=== PATIENT | male | born 1950 | race Asian ===

== ENCOUNTER 2017-05-05 07:38 | Outpatient (CLI) | payer OTHER ==
[2017-05-05 09:09] LABS: BASOPHILS # (AUTO) 0.1 K/uL (0.0-0.2); BASOPHILS % (AUTO) 0.8 % (0.0-2.0); EOSINOPHILS # (AUTO) 0.2 K/uL (0.0-0.4); EOSINOPHILS % (AUTO) 1.9 % (0.0-4.0); HEMATOCRIT 52.3 % (36-54); HEMOGLOBIN 16.8 g/dL (14.0-18.0); LYMPHOCYTES # (AUTO) 2.1 K/uL (1.0-5.5); LYMPHOCYTES % (AUTO) 25.4 % (20.5-51.5); MEAN CORPUSCULAR HEMOGLOBIN 28 pg (27-31); MEAN CORPUSCULAR HGB CONC 32 % (32-36); MEAN CORPUSCULAR VOLUME 88 fL (79.0-98.0); MONOCYTES # (AUTO) 0.6 K/uL (0.0-1.0); MONOCYTES % (AUTO) 7.5 % (1.7-9.3); NEUTROPHILS # (AUTO) 5.1 K/uL (1.8-7.7); NEUTROPHILS % (AUTO) 64.4 % (40.0-70.0); PLATELET COUNT (AUTO) 242 K/uL (130-430); RED BLOOD CELL COUNT(AUTO) 5.92 MIL/uL (4.2-6.2); RED CELL DISTRIBUTION WIDTH 12.5 % (9.0-15.0); WHITE BLOOD COUNT (AUTO) 8.1 K/uL (4.8-10.8)
[2017-05-05 09:13] LABS: BILIRUBIN,URINE NEGATIVE (NEGATIVE); CLARITY/URINE CLEAR (CLEAR); COLOR,URINE YELLOW (YELLOW); GLUCOSE,URINE 3+ (NEGATIVE); KETONES,URINE NEGATIVE (NEGATIVE); LEUKOCYTE ESTERASE ,URINE NEGATIVE (NEGATIVE); NITRITE, URINE NEGATIVE (NEGATIVE); PH,URINE 5.5 (5.0-8.0); PROTEIN URINE 3+ (NEGATIVE); UROBILINOGEN,URINE 0.2 (0.2-1.0)
[2017-05-05 09:15] LABS: BLOOD, URINE TRACE (NEGATIVE)
[2017-05-05 09:20] LABS: BACTERIA,URINE FEW /HPF (None Seen); MUCUS,URINE 1+ /LPF (None Seen); RBC,URINE 0-3 /HPF (0-3); WBC,URINE NONE SEEN /HPF (0-3)
[2017-05-05 09:53] LABS: CREATININE 1.28 mg/dL (0.55-1.30); POTASSIUM 4.6 mmol/L (3.5-5.1); THYROID STIMULATING HORMONE 1.15 uIu/mL (0.34-4.82); TOTAL BILIRUBIN 0.6 mg/dL (0.0-1.0); URIC ACID 7.8 mg/dL (2.4-7.0)
[2017-05-06 11:49] LABS: HEMOGLOBIN A1C 10.1 % (4.8-5.6)
== END 2017-05-05 19:57 | disposition home or self-care (01) ==
LOC: SLB 07:38
PROVIDERS: ATTEND Internal Medicine
DX: E11.9 Type 2 diabetes mellitus without complications (principal); E78.5 Hyperlipidemia, unspecified; I25.10 Atherosclerotic heart disease of native coronary artery without angina pectoris
CPT/HCPCS: 36415; 80053; 80061; 81000-TC; 82043; 82306; 82570; 82607; 83036; 84443-TC; 84550-TC; 85025

== ENCOUNTER 2017-08-25 15:05 | Outpatient (CLI) | payer OTHER ==
[2017-08-25 15:53] LABS: BILIRUBIN,URINE NEGATIVE (NEGATIVE); BLOOD, URINE 1+ (NEGATIVE); CLARITY/URINE CLEAR (CLEAR); COLOR,URINE YELLOW (YELLOW); GLUCOSE,URINE 3+ (NEGATIVE); KETONES,URINE NEGATIVE (NEGATIVE); LEUKOCYTE ESTERASE ,URINE NEGATIVE (NEGATIVE); NITRITE, URINE NEGATIVE (NEGATIVE); PROTEIN URINE 2+ (NEGATIVE); UROBILINOGEN,URINE 0.2 (0.2-1.0)
[2017-08-25 16:00] LABS: BACTERIA,URINE FEW /HPF (None Seen); RBC,URINE 0-3 /HPF (0-3); WBC,URINE 0-3 /HPF (0-3)
[2017-08-25 16:01] LABS: YEAST,URINE Few /HPF (None Seen)
[2017-08-25 16:04] LABS: CALCIUM 9.5 mg/dL (8.4-11.0); CREATININE 1.34 mg/dL (0.55-1.30); POTASSIUM 4.2 mmol/L (3.5-5.1)
[2017-08-26 15:59] LABS: MICROALBUMIN/CREAT RATIO, UR 2531.3 MG/G CRE (0.0-30.0)
[2017-08-26 16:00] LABS: CREATININE, URINE 46.4 mg/dL; MICROALBUMIN URINE RANDOM 1174.5 ug/ml (NOT ESTABLISHED)
== END 2017-08-25 21:16 | disposition home or self-care (01) ==
LOC: SLB 15:05
PROVIDERS: ATTEND Internal Medicine
DX: E11.21 Type 2 diabetes mellitus with diabetic nephropathy (principal); E78.5 Hyperlipidemia, unspecified
CPT/HCPCS: 36415; 80048; 81000-TC; 82043; 82570

== ENCOUNTER 2017-09-11 07:48 | Outpatient (CLI) | payer OTHER ==
[2017-09-11 08:49] LABS: BASOPHILS # (AUTO) 0.1 K/uL (0.0-0.2); BASOPHILS % (AUTO) 0.7 % (0.0-2.0); EOSINOPHILS # (AUTO) 0.2 K/uL (0.0-0.4); EOSINOPHILS % (AUTO) 1.9 % (0.0-4.0); HEMATOCRIT 46.6 % (36-54); LYMPHOCYTES # (AUTO) 1.8 K/uL (1.0-5.5); LYMPHOCYTES % (AUTO) 21.7 % (20.5-51.5); MEAN CORPUSCULAR HEMOGLOBIN 31 pg (27-31); MEAN CORPUSCULAR HGB CONC 34 % (32-36); MEAN CORPUSCULAR VOLUME 89 fL (79.0-98.0); MONOCYTES # (AUTO) 0.7 K/uL (0.0-1.0); MONOCYTES % (AUTO) 9.1 % (1.7-9.3); NEUTROPHILS # (AUTO) 5.3 K/uL (1.8-7.7); NEUTROPHILS % (AUTO) 66.6 % (40.0-70.0); PLATELET COUNT (AUTO) 246 K/uL (130-430); RED BLOOD CELL COUNT(AUTO) 5.21 MIL/uL (4.2-6.2); RED CELL DISTRIBUTION WIDTH 12.4 % (9.0-15.0); WHITE BLOOD COUNT (AUTO) 8.1 K/uL (4.8-10.8)
[2017-09-11 09:05] LABS: ALBUMIN 3.8 g/dL (3.4-4.8); CALCIUM 9.3 mg/dL (8.4-11.0); CREATININE 1.54 mg/dL (0.55-1.30); POTASSIUM 3.9 mmol/L (3.5-5.1); THYROID STIMULATING HORMONE 1.63 uIu/mL (0.34-4.82); TOTAL BILIRUBIN 0.6 mg/dL (0.0-1.0)
== END 2017-09-11 20:36 | disposition home or self-care (01) ==
LOC: SLB 07:48
PROVIDERS: ATTEND Internal Medicine
DX: I10 Essential (primary) hypertension (principal); E78.5 Hyperlipidemia, unspecified; N65.0 Deformity of reconstructed breast; E11.9 Type 2 diabetes mellitus without complications
CPT/HCPCS: 36415; 80053; 80061; 82306; 84443-TC; 85025

== ENCOUNTER 2017-10-06 10:03 | Outpatient (CLI) | payer OTHER | END 2017-10-06 20:31 | disposition home or self-care (01) | LOC: SMI 10:03 | PROVIDERS: ATTEND Psychiatry & Neurology Neurology | DX: I63.9 Cerebral infarction, unspecified (principal); I51.7 Cardiomegaly; I25.10 Atherosclerotic heart disease of native coronary artery without angina pectoris; J90 Pleural effusion, not elsewhere classified | CPT/HCPCS: 70551 ==

== ENCOUNTER 2017-12-25 09:19 | Outpatient (CLI) | payer OTHER ==
[2017-12-25 10:44] LABS: BASOPHILS # (AUTO) 0.1 K/uL (0.0-0.2); BASOPHILS % (AUTO) 1.3 % (0.0-2.0); EOSINOPHILS # (AUTO) 0.2 K/uL (0.0-0.4); EOSINOPHILS % (AUTO) 3.3 % (0.0-4.0); HEMATOCRIT 51.9 % (36-54); HEMOGLOBIN 17.2 g/dL (14.0-18.0); LYMPHOCYTES # (AUTO) 1.9 K/uL (1.0-5.5); MEAN CORPUSCULAR HEMOGLOBIN 29 pg (27-31); MEAN CORPUSCULAR HGB CONC 33 % (32-36); MEAN CORPUSCULAR VOLUME 87 fL (79.0-98.0); MONOCYTES # (AUTO) 0.6 K/uL (0.0-1.0); MONOCYTES % (AUTO) 8.3 % (1.7-9.3); NEUTROPHILS # (AUTO) 3.9 K/uL (1.8-7.7); NEUTROPHILS % (AUTO) 58.1 % (40.0-70.0); PLATELET COUNT (AUTO) 301 K/uL (130-430); RED BLOOD CELL COUNT(AUTO) 5.93 MIL/uL (4.2-6.2); RED CELL DISTRIBUTION WIDTH 12.5 % (9.0-15.0); WHITE BLOOD COUNT (AUTO) 6.7 K/uL (4.8-10.8)
[2017-12-25 10:59] LABS: BILIRUBIN,URINE NEGATIVE (NEGATIVE); BLOOD, URINE 1+ (NEGATIVE); CLARITY/URINE CLEAR (CLEAR); COLOR,URINE YELLOW (YELLOW); GLUCOSE,URINE 1+ (NEGATIVE); KETONES,URINE NEGATIVE (NEGATIVE); LEUKOCYTE ESTERASE ,URINE NEGATIVE (NEGATIVE); NITRITE, URINE NEGATIVE (NEGATIVE); PH,URINE 5.5 (5.0-8.0); PROTEIN URINE 3+ (NEGATIVE); UROBILINOGEN,URINE 0.2 (0.2-1.0)
[2017-12-25 11:36] LABS: CREATININE 1.69 mg/dL (0.55-1.30); POTASSIUM 3.9 mmol/L (3.5-5.1)
[2017-12-25 11:50] LABS: ALBUMIN 4.2 g/dL (3.4-4.8); THYROID STIMULATING HORMONE 1.42 uIu/mL (0.34-4.82); TOTAL BILIRUBIN 0.5 mg/dL (0.0-1.0)
[2017-12-25 12:32] LABS: BACTERIA,URINE None Seen /HPF (None Seen); WBC,URINE 0-3 /HPF (0-3)
[2017-12-26 08:06] LABS: PROSTATE SPECIFIC AG 1.4 ng/mL (0.0-4.0)
[2017-12-27 18:46] LABS: HEMOGLOBIN A1C 9.5 % (4.8-5.6)
== END 2017-12-25 20:40 | disposition home or self-care (01) ==
LOC: SLB 09:19
PROVIDERS: ATTEND Internal Medicine
DX: Z12.5 Encounter for screening for malignant neoplasm of prostate (principal)
CPT/HCPCS: 36415; 80053; 80061; 81000; 82306; 82607; 83036; 84443; 85025; G0103

== ENCOUNTER 2018-03-07 07:08 | Outpatient (CLI) | payer OTHER ==
[2018-03-07 07:46] LABS: BILIRUBIN,URINE NEGATIVE (NEGATIVE); BLOOD, URINE 1+ (NEGATIVE); CLARITY/URINE SL HAZY (CLEAR); COLOR,URINE YELLOW (YELLOW); GLUCOSE,URINE TRACE (NEGATIVE); KETONES,URINE NEGATIVE (NEGATIVE); LEUKOCYTE ESTERASE ,URINE NEGATIVE (NEGATIVE); NITRITE, URINE NEGATIVE (NEGATIVE); PROTEIN URINE 3+ (NEGATIVE); UROBILINOGEN,URINE 0.2 (0.2-1.0)
[2018-03-07 07:47] LABS: BASOPHILS % (AUTO) 0.5 % (0.0-2.0); EOSINOPHILS # (AUTO) 0.3 K/uL (0.0-0.4); EOSINOPHILS % (AUTO) 2.7 % (0.0-4.0); HEMATOCRIT 47.7 % (36-54); HEMOGLOBIN 15.8 g/dL (14.0-18.0); LYMPHOCYTES % (AUTO) 19.9 % (20.5-51.5); MEAN CORPUSCULAR HEMOGLOBIN 28 pg (27-31); MEAN CORPUSCULAR HGB CONC 33 % (32-36); MEAN CORPUSCULAR VOLUME 85 fL (79.0-98.0); MONOCYTES # (AUTO) 0.8 K/uL (0.0-1.0); MONOCYTES % (AUTO) 7.9 % (1.7-9.3); NEUTROPHILS # (AUTO) 6.8 K/uL (1.8-7.7); PLATELET COUNT (AUTO) 341 K/uL (130-430); RED CELL DISTRIBUTION WIDTH 13.1 % (9.0-15.0); WHITE BLOOD COUNT (AUTO) 9.9 K/uL (4.8-10.8)
[2018-03-07 07:55] LABS: CREATININE 1.51 mg/dL (0.55-1.30); POTASSIUM 4.3 mmol/L (3.5-5.1)
[2018-03-07 07:59] LABS: BACTERIA,URINE RARE /HPF (None Seen); MUCUS,URINE 1+ /LPF (None Seen); WBC,URINE 0-3 /HPF (0-3)
[2018-03-07 08:10] LABS: ALBUMIN 3.7 g/dL (3.4-4.8); THYROID STIMULATING HORMONE 1.51 uIu/mL (0.34-4.82); TOTAL BILIRUBIN 0.6 mg/dL (0.0-1.0)
== END 2018-03-07 21:11 | disposition home or self-care (01) ==
LOC: SLB 07:08
PROVIDERS: ATTEND Internal Medicine
DX: I25.10 Atherosclerotic heart disease of native coronary artery without angina pectoris (principal); I10 Essential (primary) hypertension; E78.5 Hyperlipidemia, unspecified; E11.65 Type 2 diabetes mellitus with hyperglycemia; E56.9 Vitamin deficiency, unspecified
CPT/HCPCS: 36415; 80053; 80061; 81000-TC; 82306; 82607; 83036; 84443-TC; 85025

== ENCOUNTER 2018-03-13 07:57 | Outpatient (CLI) | payer OTHER | END 2018-03-13 21:21 | disposition home or self-care (01) | LOC: SUS 07:57 | PROVIDERS: ATTEND Internal Medicine | DX: N28.9 Disorder of kidney and ureter, unspecified (principal); R93.2 Abnormal findings on diagnostic imaging of liver and biliary tract | CPT/HCPCS: 76700-TC ==

== ENCOUNTER 2018-07-06 08:35 | Outpatient (CLI) | payer OTHER ==
[2018-07-06 09:04] LABS: BASOPHILS # (AUTO) 0.1 K/uL (0.0-0.2); EOSINOPHILS # (AUTO) 0.2 K/uL (0.0-0.4); EOSINOPHILS % (AUTO) 2.6 % (0.0-4.0); HEMATOCRIT 46.3 % (36-54); HEMOGLOBIN 15.3 g/dL (14.0-18.0); LYMPHOCYTES # (AUTO) 2.3 K/uL (1.0-5.5); LYMPHOCYTES % (AUTO) 30.5 % (20.5-51.5); MEAN CORPUSCULAR HEMOGLOBIN 30 pg (27-31); MEAN CORPUSCULAR HGB CONC 33 % (32-36); MEAN CORPUSCULAR VOLUME 89 fL (79.0-98.0); MONOCYTES # (AUTO) 0.7 K/uL (0.0-1.0); MONOCYTES % (AUTO) 9.7 % (1.7-9.3); NEUTROPHILS # (AUTO) 4.3 K/uL (1.8-7.7); NEUTROPHILS % (AUTO) 56.2 % (40.0-70.0); PLATELET COUNT (AUTO) 234 K/uL (130-430); RED CELL DISTRIBUTION WIDTH 14.2 % (9.0-15.0); WHITE BLOOD COUNT (AUTO) 7.6 K/uL (4.8-10.8)
[2018-07-06 09:26] LABS: TOTAL IRON BIND. CAPACITY 314 ug/dL (250-450)
[2018-07-06 09:42] LABS: ALBUMIN 3.5 g/dL (3.4-4.8); CALCIUM 9.6 mg/dL (8.4-11.0); CREATININE 1.38 mg/dL (0.55-1.30); POTASSIUM 4.4 mmol/L (3.5-5.1); TOTAL BILIRUBIN 0.5 mg/dL (0.0-1.0)
[2018-07-07 10:47] LABS: HEMOGLOBIN A1C 8.8 % (4.8-5.6)
== END 2018-07-06 21:09 | disposition home or self-care (01) ==
LOC: SLB 08:35
PROVIDERS: ATTEND Internal Medicine
DX: E11.22 Type 2 diabetes mellitus with diabetic chronic kidney disease (principal); E11.21 Type 2 diabetes mellitus with diabetic nephropathy; E11.65 Type 2 diabetes mellitus with hyperglycemia; I12.9 Hypertensive chronic kidney disease with stage 1 through stage 4 chronic kidney disease, or unspecified chronic kidney disease; N18.3 Chronic kidney disease, stage 3 (moderate); E66.3 Overweight; E78.2 Mixed hyperlipidemia
CPT/HCPCS: 36415; 80053; 80061; 82306; 83036; 83540-TC; 83550-TC; 85025

== ENCOUNTER 2018-11-10 07:24 | Outpatient (CLI) | payer OTHER ==
[2018-11-10 08:35] LABS: BASOPHILS # (AUTO) 0.1 K/uL (0.0-0.2); BASOPHILS % (AUTO) 1.2 % (0.0-2.0); EOSINOPHILS # (AUTO) 0.1 K/uL (0.0-0.4); EOSINOPHILS % (AUTO) 1.7 % (0.0-4.0); HEMATOCRIT 48.5 % (36-54); HEMOGLOBIN 16.3 g/dL (14.0-18.0); LYMPHOCYTES # (AUTO) 2.3 K/uL (1.0-5.5); LYMPHOCYTES % (AUTO) 30.7 % (20.5-51.5); MEAN CORPUSCULAR HEMOGLOBIN 30 pg (27-31); MEAN CORPUSCULAR HGB CONC 34 % (32-36); MEAN CORPUSCULAR VOLUME 89 fL (79.0-98.0); MONOCYTES # (AUTO) 0.7 K/uL (0.0-1.0); MONOCYTES % (AUTO) 9.2 % (1.7-9.3); NEUTROPHILS # (AUTO) 4.2 K/uL (1.8-7.7); NEUTROPHILS % (AUTO) 57.2 % (40.0-70.0); PLATELET COUNT (AUTO) 247 K/uL (130-430); RED BLOOD CELL COUNT(AUTO) 5.47 MIL/uL (4.2-6.2); RED CELL DISTRIBUTION WIDTH 14.1 % (9.0-15.0); WHITE BLOOD COUNT (AUTO) 7.4 K/uL (4.8-10.8)
[2018-11-10 08:51] LABS: ALBUMIN 3.4 g/dL (3.4-4.8); CALCIUM 9.2 mg/dL (8.4-11.0); CREATININE 1.57 mg/dL (0.55-1.30); POTASSIUM 4.2 mmol/L (3.5-5.1); THYROID STIMULATING HORMONE 1.29 uIu/mL (0.36-3.74); TOTAL BILIRUBIN 0.6 mg/dL (0.0-1.0)
[2018-11-11 16:08] LABS: HEMOGLOBIN A1C 8.6 % (4.8-5.6)
== END 2018-11-10 20:52 | disposition home or self-care (01) ==
LOC: SLB 07:24
PROVIDERS: ATTEND Specialist
DX: I12.9 Hypertensive chronic kidney disease with stage 1 through stage 4 chronic kidney disease, or unspecified chronic kidney disease (principal); E11.22 Type 2 diabetes mellitus with diabetic chronic kidney disease; N18.3 Chronic kidney disease, stage 3 (moderate); E78.2 Mixed hyperlipidemia; E55.9 Vitamin D deficiency, unspecified; E66.09 Other obesity due to excess calories
CPT/HCPCS: 36415; 80053; 80061; 82306; 83036; 84443-TC; 85025

== ENCOUNTER 2019-02-08 07:12 | Outpatient (CLI) | payer OTHER ==
[2019-02-08 07:56] LABS: BASOPHILS # (AUTO) 0.1 K/uL (0.0-0.2); BASOPHILS % (AUTO) 0.7 % (0.0-2.0); EOSINOPHILS # (AUTO) 0.2 K/uL (0.0-0.4); EOSINOPHILS % (AUTO) 3.2 % (0.0-4.0); HEMATOCRIT 46.6 % (36-54); HEMOGLOBIN 15.4 g/dL (14.0-18.0); LYMPHOCYTES # (AUTO) 2.1 K/uL (1.0-5.5); LYMPHOCYTES % (AUTO) 29.9 % (20.5-51.5); MEAN CORPUSCULAR HEMOGLOBIN 29 pg (27-31); MEAN CORPUSCULAR HGB CONC 33 % (32-36); MEAN CORPUSCULAR VOLUME 89 fL (79.0-98.0); MONOCYTES # (AUTO) 0.6 K/uL (0.0-1.0); MONOCYTES % (AUTO) 9.1 % (1.7-9.3); NEUTROPHILS % (AUTO) 57.1 % (40.0-70.0); PLATELET COUNT (AUTO) 221 K/uL (130-430); RED BLOOD CELL COUNT(AUTO) 5.23 MIL/uL (4.2-6.2); RED CELL DISTRIBUTION WIDTH 13.6 % (9.0-15.0)
[2019-02-08 08:13] LABS: CALCIUM 9.6 mg/dL (8.4-11.0); CREATININE 1.63 mg/dL (0.55-1.30); POTASSIUM 4.1 mmol/L (3.5-5.1); TOTAL BILIRUBIN 0.8 mg/dL (0.0-1.0)
[2019-02-11 11:36] LABS: HEMOGLOBIN A1C 8.5 % (4.8-5.6)
== END 2019-02-08 20:21 | disposition home or self-care (01) ==
LOC: SLB 07:12
PROVIDERS: ATTEND Specialist
DX: I12.9 Hypertensive chronic kidney disease with stage 1 through stage 4 chronic kidney disease, or unspecified chronic kidney disease (principal); E11.22 Type 2 diabetes mellitus with diabetic chronic kidney disease; N18.3 Chronic kidney disease, stage 3 (moderate); E78.2 Mixed hyperlipidemia; E55.9 Vitamin D deficiency, unspecified; E66.09 Other obesity due to excess calories
CPT/HCPCS: 36415; 80053; 80061; 82306; 83036; 85025

== ENCOUNTER 2019-09-09 07:35 | Outpatient (CLI) | payer OTHER ==
[2019-09-09 10:13] LABS: BILIRUBIN,URINE NEGATIVE (NEGATIVE); CLARITY/URINE CLEAR (CLEAR); COLOR,URINE YELLOW (YELLOW); GLUCOSE,URINE TRACE (NEGATIVE); KETONES,URINE NEGATIVE (NEGATIVE); LEUKOCYTE ESTERASE ,URINE NEGATIVE (NEGATIVE); NITRITE, URINE NEGATIVE (NEGATIVE); PROTEIN URINE 3+ (NEGATIVE); UROBILINOGEN,URINE 0.2 (0.2-1.0)
[2019-09-09 10:23] LABS: BASOPHILS # (AUTO) 0.1 K/uL (0.0-0.2); BASOPHILS % (AUTO) 1.1 % (0.0-2.0); EOSINOPHILS # (AUTO) 0.2 K/uL (0.0-0.4); EOSINOPHILS % (AUTO) 2.4 % (0.0-4.0); HEMATOCRIT 43.7 % (36-54); HEMOGLOBIN 14.6 g/dL (14.0-18.0); LYMPHOCYTES % (AUTO) 24.4 % (20.5-51.5); MEAN CORPUSCULAR HEMOGLOBIN 29 pg (27-31); MEAN CORPUSCULAR HGB CONC 33 % (32-36); MEAN CORPUSCULAR VOLUME 87 fL (79.0-98.0); MONOCYTES # (AUTO) 0.6 K/uL (0.0-1.0); MONOCYTES % (AUTO) 6.9 % (1.7-9.3); NEUTROPHILS # (AUTO) 5.5 K/uL (1.8-7.7); NEUTROPHILS % (AUTO) 65.2 % (40.0-70.0); PLATELET COUNT (AUTO) 206 K/uL (130-430); RED BLOOD CELL COUNT(AUTO) 5.04 MIL/uL (4.2-6.2); RED CELL DISTRIBUTION WIDTH 14.1 % (9.0-15.0); WHITE BLOOD COUNT (AUTO) 8.4 K/uL (4.8-10.8)
[2019-09-09 10:27] LABS: BLOOD, URINE TRACE (NEGATIVE)
[2019-09-09 10:43] LABS: BACTERIA,URINE FEW /HPF (None Seen); WBC,URINE 0-3 /HPF (0-3)
[2019-09-09 11:00] LABS: ALBUMIN 3.8 g/dL (3.4-4.8); CALCIUM 9.7 mg/dL (8.4-11.0); CREATININE 1.83 mg/dL (0.55-1.30); PHOSPHORUS 3.4 mg/dL (2.7-4.5); POTASSIUM 4.5 mmol/L (3.5-5.1); THYROID STIMULATING HORMONE 1.62 uIu/mL (0.34-4.82); TOTAL BILIRUBIN 0.9 mg/dL (0.0-1.0); URIC ACID 8.1 mg/dL (2.4-7.0)
[2019-09-10 11:10] LABS: AFP, TUMOR MARKER 1.2; PROSTATE SPECIFIC AG 1.8
== END 2019-09-09 20:13 | disposition home or self-care (01) ==
LOC: SUS 07:35
PROVIDERS: ATTEND Internal Medicine
DX: M47.816 Spondylosis without myelopathy or radiculopathy, lumbar region (principal); N28.1 Cyst of kidney, acquired; M25.78 Osteophyte, vertebrae; M46.06 Spinal enthesopathy, lumbar region; Z90.49 Acquired absence of other specified parts of digestive tract
CPT/HCPCS: 36415; 72110; 73502; 76700-TC; 80053; 80061; 81000-TC; 82043; 82105; 82306; 82570; 82607; 83036; 84100-TC; 84153; 84443-TC; 84550-TC; 85025

== ENCOUNTER 2019-12-28 10:55 | Inpatient (IN) | payer OTHER, SELFPAY ==
[~2019-12-28] VITALS: Ht 162.6 cm; Wt 72.6 kg
--- NOTE | 2019-12-28 11:05 | NUR ---
Patient to ER bed 01 to gown for evaluation. Side rails up.
--- NOTE | 2019-12-28 11:07 | NUR ---
Patient arrived in the ED c/o FACIAL DROOPING ON THE LEFT SIDE THAT STARTED LAST NIGHT 1800, LWKT 1800. Denied any chest pain or shortness of breath. Denied any fevers, chills, nausea or vomiting. Patient is alert and oriented x4, respirations even and unlabored, speaking in full sentences, and ambulating with a steady gait. VSS, pain level 0/10. AND DAUGHTER AT BEDSIDE. Informed of the approximate wait time. Instructed to notify ED staff for any changes in condition or worsening of symptoms while waiting to be seen by an ED provider. Patient verbalized understanding.
[2019-12-28 11:17] VITALS: BP_SYST 173
--- NOTE | 2019-12-28 11:25 | NUR ---
PATIENT TAKEN TO CT, IN STABLE CONDITION.
--- NOTE | 2019-12-28 11:32 | NUR ---
Patient is back from CT in stable condition.
--- NOTE | 2019-12-28 11:37 | NUR ---
ER at bedside examining patient.
--- NOTE | 2019-12-28 12:20 | NUR ---
RECEIVED ADMITTING ORDERS FROM DR. BIRMINGHAM.
--- NOTE | 2019-12-28 12:20 | NUR ---
ROOM ASSIGNMENT OBTAINED, WAITING FOR THE COVID RESULT.
[2019-12-28 12:22] LABS: BASOPHILS # (AUTO) 0.1 K/uL (0.0-0.2); BASOPHILS % (AUTO) 1.1 % (0.0-2.0); CALCIUM 9.1 mg/dL (8.4-11.0); CREATININE 1.8 mg/dL (0.55-1.30); EOSINOPHILS # (AUTO) 0.2 K/uL (0.0-0.4); EOSINOPHILS % (AUTO) 2.6 % (0.0-4.0); HEMATOCRIT 41.8 % (36-54); HEMOGLOBIN 14.1 g/dL (14.0-18.0); LYMPHOCYTES % (AUTO) 22.1 % (20.5-51.5); MEAN CORPUSCULAR HEMOGLOBIN 29 pg (27-31); MEAN CORPUSCULAR HGB CONC 34 % (32-36); MEAN CORPUSCULAR VOLUME 85 fL (79.0-98.0); MONOCYTES # (AUTO) 0.7 K/uL (0.0-1.0); MONOCYTES % (AUTO) 7.6 % (1.7-9.3); NEUTROPHILS % (AUTO) 66.6 % (40.0-70.0); PLATELET COUNT (AUTO) 226 K/uL (130-430); POTASSIUM 4.2 mmol/L (3.5-5.1); RED BLOOD CELL COUNT(AUTO) 4.91 MIL/uL (4.2-6.2); RED CELL DISTRIBUTION WIDTH 14.6 % (9.0-15.0)
[2019-12-28] MEDS ORDERED: METF1000 PO (12:24)
[2019-12-28] MEDS ORDERED: NEPH PO (12:24)
[2019-12-28] MEDS ORDERED: IRBE300T40 PO (12:24)
[2019-12-28] MEDS ORDERED: ROSU40TA PO (12:24)
[2019-12-28] MEDS ORDERED: CARV25TA55 PO (12:24)
[2019-12-28] MEDS ORDERED: ASPI-1393 PO (12:24)
[2019-12-28 12:26] LABS: PROTHROMBIN TIME 9.9 SECS (9.5-12.5)
[2019-12-28 12:28] LABS: ALBUMIN 3.6 g/dL (3.4-4.8); TOTAL BILIRUBIN 0.6 mg/dL (0.0-1.0)
[2019-12-28] MEDS ORDERED: ASPIRIN 81 MG TAB.CHEW PO ONE (12:45)
--- NOTE | 2019-12-28 12:48 | NUR ---
Patient will be admitted to care of DR. BIRMINGHAM. Admitted to TELE unit. Will go to room 109C. Belongings list completed. Complete and up to date summary report printed. SBAR report to be given at bedside with opportunity for questions.
--- NOTE | 2019-12-28 13:13 | NUR ---
ACCMAREN FORREST, BS 54, PAGED DR. BIRMINGHAM. AWAITING CALL BACK.
--- NOTE | 2019-12-28 13:48 | NUR ---
OVERRIDE FOR DEXTROSE DUE TO LOW BS. ADMINISTERED DEXTROSE, EDUCATION GIVEN, FAMILY AT BEDSIDE. TOLERATED WELL, CONTINUE TO MONITOR. AWAITING CALL BACK FROM DR. BIRMINGHAM
[2019-12-28] MEDS ORDERED: INSU100V3 SQ (13:50)
[2019-12-28] MEDS ORDERED: ASCO500T20 PO (13:51)
[2019-12-28] MEDS ORDERED: VITD2000 PO (13:52)
[2019-12-28] MEDS ORDERED: ZINC50TA69 PO (13:52)
[2019-12-28] MEDS ORDERED: DEXTROSE 50% JECT 50 ML DISP.SYRIN ONE ×2 (14:00→17:03)
--- NOTE | 2019-12-28 14:15 | NUR ---
ACCUCHECK DONE TO RE-CHECK BLOOD SUGAR, BLOOD SUGAR 180. CONTINUE TO MONITOR. STILL AWAITING CALL BACK FROM DR. BIRMINGHAM
[2019-12-28 14:18] VITALS: BP_SYST 154
--- NOTE | 2019-12-28 15:07 | NUR ---
ROUNDS PT RESTING IN BED, CHEST RISE AND FALL. NO ACUTE DISTRESS NOTED. FAMILY AT BEDSIDE. CALLED SPEECH THERAPIST JUAN ONCE MORE AT [phone], LEFT VOICEMAIL.
[2019-12-28 15:34] VITALS: BP_SYST 145
--- NOTE | 2019-12-28 16:28 | NUR ---
CONSULT SWALLOW EVAL LEFT FOR JUAN ()
--- NOTE | 2019-12-28 16:30 | NUR ---
CONSULT CARDIOLOGY CVA DR LU [phone] S/[facility] OFFICE
--- NOTE | 2019-12-28 16:59 | NUR ---
ACCUCHECK PT DIAPHORETIC, ACCUCHECK DONE BY ANGELIKA PETERSON. BLOOD SUGAR 62, PAGED DR. BIRMINGHAM, AWAITING CALL BACK. CHARGE NURSE, DAINA AWARE, OVERRIDE PYXIS FOR DEXTROSE, PHARMACY STATED OK TO GIVE AT THIS TIME. ADMINISTERED DEXTROSE, EDUCATION GIVEN, FAMILY AT BEDSIDE. CONTINUE TO MONITOR.
--- NOTE | 2019-12-28 17:15 | NUR ---
CALLED DR. BIRMINGHAM'S CELL PHONE 3X [phone], LEFT VOICEMAIL.
--- NOTE | 2019-12-28 17:22 | NUR ---
ACCUCHECK DONE, BLOOD SUGAR 185. PT AWAKE AND ALERT. CONTINUE TO MONITOR. AWAITING DR. BIRMINGHAM'S CALL.
--- NOTE | 2019-12-28 17:29 | NUR ---
CONSULT NEUROLOGY ALEA BORJA DO [phone] THIS IS A CORPORATE OFFICE CLOSES AT 1630 ONLY OPTION WAS TO LEAVE VM AND WAS UNABLE TO VM BOX WAS FULL
--- NOTE | 2019-12-28 18:25 | NUR ---
SPOKE TO DR. CARABALLO & DR. BIRMINGHAM MADE DR. CARABALLO AND DR. BIRMINGHAM AWARE OF PATIENT'S LOW BLOOD SUGAR FROM ACCUCHECKS, DIAPHORESIS, AND OVERRIDING AND ADMINISTERING D50 2x. AND MD'S AWARE OF CONSULT MARIE, CHANGED TO DR. BELL. RECEIVED ORDERS VERIFIED, AND CARRIED OUT.
--- NOTE | 2019-12-28 18:26 | NUR ---
HIGH ALERT NOTE: Called Dr. CARABALLO back at [phone] identified within the medical roster to verify physician authenticity.
[2019-12-28] MEDS ORDERED: INSULIN REGULAR, HUMAN 100 UNITS/ML, 10 ML VIAL (humuLIN R) SUBCUT PRN (18:30)
[2019-12-28] MEDS ORDERED: DEXTROSE 50% JECT 50 ML DISP.SYRIN IVP PRN (18:30)
[2019-12-28] MEDS: D5NS 1,000 ML IV SCH (19:07)
--- NOTE | 2019-12-28 19:10 | NUR ---
CLOSING NOTES PT AWAKE, ALERT, AND ORIENTED. NONLABORED BREATHING NOTED ON ROOM AIR, NO S/S OF PAIN OR DISTRESS NOTED. LEFT FACIAL DROOP IS BASELINE, NO NEW CHANGES FROM ADMISSION. IV LINE INTACT AND PATENT, NO SIGNS OF INFILTRATION NOTED, FLUIDS RUNNING ORDERED PER MD, TOLERATING WELL. ACCUCHECK DONE, BLOOD SUGAR 116. ENDORSED CARE TO ANGELIKA JONES.
[2019-12-28 20:02] LABS: THYROID STIMULATING HORMONE 1.91 uIu/mL (0.34-4.82)
[2019-12-28 20:35] VITALS: BP_SYST 161
--- NOTE | 2019-12-28 20:42 | NUR ---
PAGED PAGED DOCTOR HUNTER CASTELLANO IS BRAIN WAVE TECHNICIAN
--- NOTE | 2019-12-28 20:50 | NUR ---
BP SPOKE WITH DR. CASTELLANO AND RASHMI FOR BP 161/95. CONTINUE TO MONITOR BP PER MD. IVF INFUSING WITH IV LINE INTACT. PATIENT AT BEDSIDE. NO C/O OF PAIN. NO NEURO DEFICIT.
[2019-12-28] MEDS: CARVEDILOL 25 MG TABLET (COREG) PO SCH (20:53)
[2019-12-28 23:41] VITALS: BP_SYST 154
--- NOTE | 2019-12-28 23:46 | NUR ---
BLD SUGAR ROUTINE FINGER STICK SUGAR 139. NO COVERAGE NEEDED PER SLIDING SCALE ORDER. VITAL SIGNS STABLE. NO CHANGE IN NEURO ASSESSMENT. DAUGHTER AT BEDSIDE.
--- NOTE | 2019-12-29 03:20 | NUR ---
ROUNDS PATIENT RESTING IN BED. NO DISTRESS NOTED. IVF INFUSING. DAUGHTER AT BEDSIDE.
--- NOTE | 2019-12-29 05:10 | NUR ---
Consultation Paged Reason for Consultation: CVA Was consult called: Y Person who who was notified: Dr. Retana through text message Consulting Physician: Dr. Retana Ordering Physician: Dr. Wynne
[2019-12-29] MEDS: D5NS 1,000 ML IV SCH (06:20)
--- NOTE | 2019-12-29 06:31 | NUR ---
CLOSING NOTES PATIENT NEEDS ATTENDED. NO CHANGE IN PATIENT CONDITION. IVF INFUSING ORDERED WITH IV LINE INTACT. KEPT NPO FOR SWALLOW EVAL TODAY. DAUGHTER AT BEDSIDE.
--- NOTE | 2019-12-29 07:50 | NUR ---
Opening Notes Patient is awake, alert and oriented x4. No resp distress noted. Breathing is even and unlabored. Pt denies any pain at this time. IV site on right hand, 20 gauge, intact. Flushing well at this time. D5NS @ 75 cc/hr, infusing well at this time. Pt has a bedside urinal available. Family ( and daughter) at bedside. Neurocheck performed: all within normal limits with exception of left sided facial drooping. Patient remains NPO at this time. Pt was educated of following procedures: Swallow evaluation, 2D ECHO, and MRI of brain. Aware and agreed. All needs met at this time. Safety and fall precautions in place. Bed in lowest position, locked. Will continue to monitor.
[2019-12-29 08:00] VITALS: BP_SYST 158
--- NOTE | 2019-12-29 08:15 | NUR ---
Patient is being seen and examined by DR. LU
[2019-12-29] MEDS: CARVEDILOL 25 MG TABLET (COREG) PO SCH ×2 (09:00→11:20)
[2019-12-29] MEDS ORDERED: IRBESARTAN 150 MG TABLET (AVAPRO) PO SCH (09:00)
[2019-12-29] MEDS: LOSARTAN POTASSIUM 50 MG TABLET (COZAAR) PO SCH ×2 (09:00→11:21)
[2019-12-29] MEDS: ASPIRIN 81 MG TABLET(ECOTRIN) PO SCH ×2 (09:00→11:19)
[2019-12-29] MEDS ORDERED: ROSUVASTATIN CALCIUM 5 MG/TAB (CRESTOR) PO SCH (09:00)
[2019-12-29] MEDS ORDERED: ATORVASTATIN 20 MG TABLET PO SCH (09:00)
--- NOTE | 2019-12-29 09:20 | NUR ---
Patient is being seen and examined by DR. BIRMINGHAM
[2019-12-29 10:27] LABS: CALCIUM 8.6 mg/dL (8.4-11.0); CREATININE 1.71 mg/dL (0.55-1.30); POTASSIUM 4.4 mmol/L (3.5-5.1)
--- NOTE | 2019-12-29 10:42 | NUR ---
US RENAL COMPLETE
--- NOTE | 2019-12-29 10:42 | NUR ---
Notes Patient is laying in bed, resting at this time. IVF have been discontinued per request. Patients diet changed from NPO to CCHO. Patient was able to swallow food/water without difficulty. No resp distress noted. Breathing is even and unlabored. Will continue to monitor.
--- NOTE | 2019-12-29 11:30 | NUR ---
MED PASS All scheduled 0900 medications rendered. Patients BP is elevated: 162/98. Patient tolerated medication administration well, no swallowing issues noted. Will continue to monitor.
--- NOTE | 2019-12-29 11:37 | NUR ---
Blood Sugar Patients BS was noted at 254 mg/dL. Per sliding scale, administered 6 units of regular insulin, tolerated well. Will continue to monitor.
[2019-12-29 12:00] VITALS: BP_SYST 162
--- NOTE | 2019-12-29 12:15 | NUR ---
Notes Patient is laying in bed, resting at this time. NO resp distress. NO signs of pain. Will continue to monitor.
[2019-12-29] MEDS ORDERED: cloNIDine HCL 0.1 MG TABLET PO PRN (14:00)
[2019-12-29] MEDS ORDERED: hydrALAZINE HCL 20 MG/ML VIAL IVP PRN (14:00)
--- NOTE | 2019-12-29 14:07 | NUR ---
Notes Patient is sitting up in bed. by bedside. No resp distress noted. Breathing is even and unlabored. Denies any pain at this time. Will continue to monitor.
--- NOTE | 2019-12-29 14:52 | NUR ---
S.T. SWALLOW EVAL SWALLOW EVAL COMPLETED. 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 NO S/S OF ASPIRATION. REC: [facility] SOFT CHOPPED DIET. THIN LIQUIDS OK. EDUCATION GIVEN ON DECREASED RATE AND BOLUS PLACEMENT. PT AND IN AGREEMENT W/ RESULTS AND REC. NURSE JAGRUTI NOTIFIED.
[2019-12-29 14:53] VITALS: BP_SYST 150
--- NOTE | 2019-12-29 15:59 | NUR ---
ATTENDING ME DR BIRMINGHAM WAS CALLED, RE: NEGATIVE MRI RESULT, DISCHARGE ORDER TO HOME. SPOKE TO KOLE.
[2019-12-29 16:00] VITALS: BP_SYST 156
--- NOTE | 2019-12-29 16:15 | NUR ---
Notes Patient is sitting up in a chair next to his bed. No resp distress noted. Breathing is even and unlabored. Denies any pain at this time. Educated patient of MRI results, aware and agreed. All needs met. Will continue to monitor.
--- NOTE | 2019-12-29 17:05 | NUR ---
D/C Patient Patient given medication reconciliation form and D/C instructions. Exit Care provided. Patient verbalized understanding. MD discussed with patient the results and treatment provided. Ambulatory with steady gait for discharge to home. Patient educated to schedule appt with vascular surgeon, aware and agreed. Patient in stable condition, ID band removed. IV catheter removed, intact and dressing applied, no active bleeding. Patient educated on pain management. All belongings sent with patient.
--- NOTE | 2020-01-10 16:02 | NUR ---
Discharge Follow Up Call: ART EDUCATOR phoned pt on 01/03, 01/05 and 01/09 and left voicemail stating reason for call and requested for a phone back. No further SS call needed at this time.
== END 2019-12-29 16:15 | disposition home or self-care (01) | DRG 74 ==
LOC: SED 10:55 → STU 12:18
PROVIDERS: ADMIT Internal Medicine Hospice and Palliative Medicine; ATTEND Internal Medicine Hospice and Palliative Medicine
DX: G51.0 Bell's palsy (principal); E11.22 Type 2 diabetes mellitus with diabetic chronic kidney disease; E78.00 Pure hypercholesterolemia, unspecified; E78.5 Hyperlipidemia, unspecified; I12.9 Hypertensive chronic kidney disease with stage 1 through stage 4 chronic kidney disease, or unspecified chronic kidney disease; N18.30 Chronic kidney disease, stage 3 unspecified; R13.10 Dysphagia, unspecified; Z20.828 Contact with and (suspected) exposure to other viral communicable diseases; Z86.73 Personal history of transient ischemic attack (TIA), and cerebral infarction without residual deficits; I25.2 Old myocardial infarction; Z87.891 Personal history of nicotine dependence; Z90.49 Acquired absence of other specified parts of digestive tract; Z79.82 Long term (current) use of aspirin; Z79.899 Other long term (current) drug therapy
CPT/HCPCS: 36415; 70450-TC; 70551; 71045; 76376; 76770; 80048; 80053; 80061; 82962; 83036; 84443-TC; 84484; 85025; 85610-TC; 85730-TC; 86886; 86900; 86901; 92610-GN; 93005; 93306; 93880; 99285; G0378; J1815; J7042

== ENCOUNTER 2022-09-18 22:22 | Emergency (ER) | payer OTHER ==
[~2022-09-18] VITALS: Ht 162.6 cm; Wt 79.4 kg
[~2022-09-18 22:22] MED LIST: ASCO500T20 PO; ASPI-1393 PO; CARV25TA55 PO; INSU100V3 SQ; IRBE300T40 PO; NEPH PO; ROSU40TA PO; VITD2000 PO; ZINC50TA69 PO
[2022-09-18 22:23] VITALS: BP_SYST 168; PULSE 78; RESP 24; TEMP 98.6; O2SAT 98
[2022-09-18] MEDS ORDERED: BENZONATATE 100 MG CAPSULE (TESSALON) PO ONE (23:45)
[2022-09-18] MEDS ORDERED: BENZONATATE 100 MG CAPSULE (TESSALON) ONE (23:56)
[2022-09-19 00:02] LABS: BASOPHILS # (AUTO) 0.1 K/uL (0.0-0.2); BASOPHILS % (AUTO) 0.5 % (0.0-2.0); EOSINOPHILS # (AUTO) 0.1 K/uL (0.0-0.4); EOSINOPHILS % (AUTO) 0.5 % (0.0-4.0); HEMATOCRIT 44.6 % (36-54); HEMOGLOBIN 14.5 g/dL (14.0-18.0); LYMPHOCYTES # (AUTO) 1.1 K/uL (1.0-5.5); LYMPHOCYTES % (AUTO) 9.8 % (20.5-51.5); MEAN CORPUSCULAR HEMOGLOBIN 29 pg (27-31); MEAN CORPUSCULAR HGB CONC 33 % (32-36); MEAN CORPUSCULAR VOLUME 90 fL (79.0-98.0); MONOCYTES # (AUTO) 1.2 K/uL (0.0-1.0); MONOCYTES % (AUTO) 11.2 % (1.7-9.3); NEUTROPHILS # (AUTO) 8.5 K/uL (1.8-7.7); PLATELET COUNT (AUTO) 158 K/uL (130-430); RED BLOOD CELL COUNT(AUTO) 4.99 MIL/uL (4.2-6.2); RED CELL DISTRIBUTION WIDTH 16.7 % (9.0-15.0); WHITE BLOOD COUNT (AUTO) 10.9 K/uL (4.8-10.8)
[2022-09-19 00:40] LABS: ALANINE AMINOTRANSFERASE 27 U/L (12-78); ALBUMIN 2.9 g/dL (3.4-4.8); ANION GAP 9 (5-15); ASPARTATE AMINOTRANSFERASE 25 U/L (10-37); CALCIUM 8.3 mg/dL (8.4-11.0); CHLORIDE 105 mmol/L (98-107); CREATININE 2.43 mg/dL (0.55-1.30); GLUCOSE 119 mg/dL (74-106); TOTAL BILIRUBIN 0.4 mg/dL (0.0-1.0); UREA NITROGEN, BLOOD 34 mg/dL (8-21)
[2022-09-19] MEDS ORDERED: BENZ100C92 PO (01:38)
[2022-09-19 02:03] VITALS: BP_SYST 136; PULSE 86; RESP 20; TEMP 98.4; O2SAT 95
== END 2022-09-19 02:06 | disposition home or self-care (01) ==
LOC: SED 22:22
DX: J44.1 Chronic obstructive pulmonary disease with (acute) exacerbation (principal); J06.9 Acute upper respiratory infection, unspecified; R05.9 Cough, unspecified; R42 Dizziness and giddiness; Z79.4 Long term (current) use of insulin; Z79.899 Other long term (current) drug therapy; Z20.822 Contact with and (suspected) exposure to COVID-19
CPT/HCPCS: 36415; 71045; 80053; 83880; 84484; 85025; 93005; 99285